=== PATIENT | male | born 1990 | race Caucasian/White ===

== ENCOUNTER 2016-09-14 19:22 | Emergency (ER) | payer BC, OTHER ==
[2016-09-14 19:48] VITALS: BP 121/59; PULSE 76; RESP 18; TEMP 98.7
--- NOTE | 2016-09-14 20:44 | XR ---
EXAMINATION TYPE: XR knee complete RT DATE OF EXAM: 09/14/2016 8:40 PM CLINICAL HISTORY: Right knee pain since popping injury today. TECHNIQUE: Three views of the right knee are obtained. COMPARISON: Right knee x-ray January 04, 2016. FINDINGS: There is no acute fracture/dislocation evident in right knee. The tri-compartment joint s paces appear within normal limits. There is persistent partial ossific projection from anterior infer ior patella could reflect spur or osteochondroma. Increased density suprapatellar bursa suspicious fo r joint effusion. IMPRESSION: There is no acute fracture or dislocation in the right knee. No significant change from prior.
--- NOTE | 2016-09-14 20:52 | ED ---
Lower Extremity Injury HPI - General Chief Complaint: Extremity Injury, Lower Stated Complaint: knee injury Time Seen by Provider: 09/14/16 19:58 Source: patient, RN notes reviewed, old records reviewed Mode of arrival: ambulatory Limitations: no limitations - History of Present Illness Initial Comments: Patient is a 26-year-old female with a chief complaint of right knee pain. Patient reports that months ago he had a injury on his knee where popped out of place. Patient states that it got better afterwards after he had a steroid injection from orthopedic physician. Patient reports that over the past 2 days he felt that his knee gave out and the pain is continue to persist. Patient states that he is able to flex and extend his knee. He does note some mild swelling over. Patient reports the pain is mainly over the accident inner part of the knee. Patient states it is able to bear weight. Denies any hip or ankle pain. - Related Data Previous Rx's Medication Instructions Recorded Naproxen 500 mg PO Q12HR #20 tab 09/14/16 Allergies Allergy/AdvReac Type Severity Reaction Status Date / Time No Known Allergies Allergy Verified 09/14/16 19:48 Review of Systems ROS Statement: Those systems with pertinent positive or pertinent negative responses have been documented in the HPI. ROS Other: All systems not noted in ROS Statement are negative. Past Medical History Past Medical History: No Reported History History of Any Multi-Drug Resistant Organisms: None Reported Past Surgical History: Orthopedic Surgery Additional Past Surgical History / Comment(s): RIGHT HAND Past Psychological History: No Psychological Hx Reported Smoking Status: Current every day smoker Past Alcohol Use History: Occasional Past Drug Use History: None Reported General Exam - General Exam Comments Initial Comments: Pleasant 26-year-old male. No distress. Limitations: no limitations General appearance: alert, in no apparent distress Head exam: Present: atraumatic, normocephalic, normal inspection Eye exam: Present: normal appearance, PERRL, EOMI. Absent: scleral icterus, conjunctival injection, periorbital swelling ENT exam: Present: normal exam, mucous membranes moist Neck exam: Present: normal inspection. Absent: tenderness, meningismus, lymphadenopathy Respiratory exam: Present: normal lung sounds bilaterally. Absent: respiratory distress, wheezes, rales, rhonchi, stridor Cardiovascular Exam: Present: regular rate, normal rhythm, normal heart sounds. Absent: systolic murmur, diastolic murmur, rubs, gallop, clicks GI/Abdominal exam: Present: soft, normal bowel sounds. Absent: distended, tenderness, guarding, rebound, rigid Extremities exam: Present: normal inspection, full ROM, normal capillary refill. Absent: tenderness, pedal edema, joint swelling, calf tenderness Back exam: Present: normal inspection Neurological exam: Present: alert, oriented X3, CN II-XII intact Psychiatric exam: Present: normal affect, normal mood Skin exam: Present: warm, dry, intact, normal color. Absent: rash Course Vital Signs 09/14/16 19:45 Temperature 98.7 F Pulse Rate 76 Respiratory 18 Rate Blood Pressure 121/59 O2 Sat by Pulse 99 Oximetry Medical Decision Making - Medical Decision Making Patient is a 26-year-old female with a chief complaint of right knee pain. Patient reports that months ago he had a injury on his knee where popped out of place. Patient states that it got better afterwards after he had a steroid injection from orthopedic physician. Patient reports that over the past 2 days he felt that his knee gave out and the pain is continue to persist. Patient states that he is able to flex and extend his knee. He does note some mild swelling over. Patient xray is negative for acute process. Patient has mild laxity with posterior movement. Patient has knee imbilizer at home, discussed follow up with orthopedic physician. Patient understands treatent plan and will comply. Given kayce wrap. - Radiology Data Radiology results: report reviewed Xray is negative for any acute process. Disposition Clinical Impression: Joint laxity of right knee Disposition: HOME SELF-CARE Condition: Good Instructions: Knee Sprain (ED) Additional Instructions: Visualize follow-up with Dr. Fabian within the next 1-2 days. He is at home knee immobilizer previous prescriptions of crutches to ambulate. Patient needs to follow-up with orthopedic physician to get an MRI. Taken Motrin or Tylenol for pain and keep the knee elevated, apply ice over the area. Prescriptions: Naproxen 500 mg PO Q12HR #20 tab Referrals: Dawood Erwin MD [Primary Care Provider] - 1-2 days Dat Fabian MD [STAFF PHYSICIAN] - 1-2 days Time of Disposition: 20:46
== END 2016-09-14 20:55 | disposition home or self-care (01) ==
LOC: EC 19:22
DX: M25.261 Flail joint, right knee (principal); F17.200 Nicotine dependence, unspecified, uncomplicated
CPT/HCPCS: 99284

== ENCOUNTER 2017-09-06 14:03 | Emergency (ER) | payer BC, OTHER ==
[2017-09-06 14:19] VITALS: BP 124/58; PULSE 76; RESP 18; TEMP 98.1
--- NOTE | 2017-09-06 15:06 | XR ---
EXAMINATION TYPE: XR hand complete LT DATE OF EXAM: 09/06/2017 COMPARISON: NONE HISTORY: 27-year-old male injury and laceration to left middle finger on sheet metal, pain TECHNIQUE: 3 views FINDINGS: No acute fracture, subluxation, or dislocation. Joint spaces throughout are maintained. No periostiti s or osteolysis. Old healed angulated boxer's fracture at the fifth metacarpal neck. No retained radi opaque foreign body seen. IMPRESSION: 1. No acute osseous abnormality seen. No retained radiopaque foreign body material. 2. Old healed angulated boxer's fracture fifth metacarpal neck.
--- NOTE | 2017-09-06 15:08 | ED ---
Wound/Laceration HPI - General Chief Complaint: Wound/Laceration Stated Complaint: Finger Injuy Time Seen by Provider: 09/06/17 14:21 Source: patient, RN notes reviewed, old records reviewed Mode of arrival: ambulatory Limitations: no limitations - History of Present Illness Initial Comments: This patient is a 27 year old male with CC of left middle finger laceration. Patient reports that he cut it on sheet metal at work. He reports full ROM of finger. Denies numbness or tingling. Patient relates that he is up to date on tetanus, he had it 4 years ago. Denies any other lacerations or injury. - Related Data Previous Rx's Medication Instructions Recorded Naproxen 500 mg PO Q12HR #20 tab 09/14/16 Allergies Allergy/AdvReac Type Severity Reaction Status Date / Time No Known Allergies Allergy Verified 09/06/17 14:19 Review of Systems ROS Statement: Those systems with pertinent positive or pertinent negative responses have been documented in the HPI. ROS Other: All systems not noted in ROS Statement are negative. Past Medical History Past Medical History: No Reported History History of Any Multi-Drug Resistant Organisms: None Reported Past Surgical History: Orthopedic Surgery Additional Past Surgical History / Comment(s): RIGHT HAND Past Psychological History: No Psychological Hx Reported Smoking Status: Current every day smoker Past Alcohol Use History: Occasional Past Drug Use History: Marijuana General Exam - General Exam Comments Initial Comments: This is a 27 year old male, no distress. Limitations: no limitations General appearance: alert, in no apparent distress Head exam: Present: atraumatic, normocephalic, normal inspection Eye exam: Present: normal appearance, PERRL, EOMI. Absent: scleral icterus, conjunctival injection, periorbital swelling ENT exam: Present: normal exam, mucous membranes moist Neck exam: Present: normal inspection. Absent: tenderness, meningismus, lymphadenopathy Respiratory exam: Present: normal lung sounds bilaterally. Absent: respiratory distress, wheezes, rales, rhonchi, stridor Cardiovascular Exam: Present: regular rate, normal rhythm, normal heart sounds. Absent: systolic murmur, diastolic murmur, rubs, gallop, clicks Left Forearm Wrist exam: Present: normal inspection, full ROM Hand Wrist exam: Present: full ROM, laceration. Absent: normal inspection, tenderness, swelling, abrasion Hand L/R Back: 1 - 2 cm laceration. Linear. Back exam: Present: normal inspection Course Vital Signs 09/06/17 14:17 Temperature 98.1 F Pulse Rate 76 Respiratory 18 Rate Blood Pressure 124/58 O2 Sat by Pulse 99 Oximetry Procedures - Laceration Laceration #1 Indication: laceration Site: hand (left 3rd proximal digit. ) Size (cm): 2 Description: linear Depth: simple, single layer Anesthetic Used: lidocaine 1% Anesthesia Technique: local infiltration Amount (mls): 3 Pre-repair: wound explored, irrigated extensively Type of Sutures: nylon Size of Sutures: 6-0 Number of Sutures: 3 Technique: simple, interrupted Patient Tolerated Procedure: well, no complications Medical Decision Making - Medical Decision Making This patient is a 27 year old male with CC of left middle finger laceration. Patient reports that he cut it on sheet metal at work. He reports full ROM of finger. Denies numbness or tingling. Patient relates that he is up to date on tetanus, he had it 4 years ago. Patient has a 2 cm laceration, it is linear and clean. No tendon involvement. Patient xray shows no foreign body, healed angulated boxer fracture noted. Patient wound was irrigated and well approximated with 3 sutures. Discussed monitor for infection, and suture care. All questions answered and return parameters discussed. - Radiology Data Radiology results: report reviewed No acute osseous abnormality seen. No retained radiopaque foreign body material. Old healed angulated boxer fracture fifth metacarpal neck. Read by Dr. Miguel. Disposition Clinical Impression: Finger laceration Disposition: HOME SELF-CARE Condition: Good Instructions: Finger Laceration (ED) Additional Instructions: Please return to the emergency room in 7 days to have sutures removed. Please leave wound covered for the first 24-48 hours and then leave open to air after that time. Please use clean soap and water to clean the suture area to prevent scabbing over the top of your sutures. Please watch for any signs of infection which may include but not limited to increased pain, swelling, redness, fever or chills. Please return to the emergency room if any signs of infection do occur. Please return to the emergency room for any other concerns or complications. Referrals: Dawood Erwin MD [Primary Care Provider] - 1-2 days Time of Disposition: 15:07
== END 2017-09-06 15:28 | disposition home or self-care (01) ==
LOC: EC 14:03
DX: S61.213A Laceration without foreign body of left middle finger without damage to nail, initial encounter (principal); F17.200 Nicotine dependence, unspecified, uncomplicated; W26.8XXA Contact with other sharp object(s), not elsewhere classified, initial encounter; Y99.0 Civilian activity done for income or pay; Y92.69 Other specified industrial and construction area as the place of occurrence of the external cause
CPT/HCPCS: 12001; 99283

== ENCOUNTER 2018-05-17 11:55 | Emergency (ER) | payer OTHER ==
[2018-05-17 12:06] VITALS: RESP 18
[2018-05-17] MEDS ORDERED: KETOROLAC 60 MG/2 ML VIAL IM STA (12:25)
--- NOTE | 2018-05-17 12:30 | ED ---
General Adult HPI - General Chief complaint: Chest Pain Stated complaint: Chest pain Time Seen by Provider: 05/17/18 12:00 Source: patient, RN notes reviewed Mode of arrival: ambulatory Limitations: no limitations - History of Present Illness Initial comments: This is a 27-year-old male who presents emergency Department complaining of right-sided mid pectoralis chest pain. Patient states it started on Wednesday. Patient states it's reproducible with palpation. Patient states it's reproducible with movement of his arm above horizontal. Patient states he refers lungs is lifting things that are below his waist does not hurt. But if he starts lifting above his head the pain is there. Patient states takes Motrin and it does help the pain. Patient denies any direct trauma to the area that he knows of. Patient denies any shortness of breath or difficulty breathing. Patient denies any sweating episodes. Patient denies any nausea vomiting. Patient denies any radiation of the pain. Patient denies abdominal pain patient denies nausea vomiting diarrhea. Patient denies headache patient denies numbness weakness.patient states she recently got over bronchitis. - Related Data Previous Rx's Medication Instructions Recorded Naproxen 500 mg PO Q12HR #20 tab 09/14/16 Ibuprofen [Motrin] 600 mg PO Q6HR PRN #20 tab 05/17/18 Allergies Allergy/AdvReac Type Severity Reaction Status Date / Time No Known Allergies Allergy Verified 09/06/17 14:19 Review of Systems ROS Statement: Those systems with pertinent positive or pertinent negative responses have been documented in the HPI. ROS Other: All systems not noted in ROS Statement are negative. Past Medical History Past Medical History: No Reported History History of Any Multi-Drug Resistant Organisms: None Reported Past Surgical History: Orthopedic Surgery Additional Past Surgical History / Comment(s): RIGHT HAND Past Psychological History: No Psychological Hx Reported Smoking Status: Current every day smoker Past Alcohol Use History: Occasional Past Drug Use History: Marijuana General Exam - General Exam Comments Initial Comments: GENERAL: Patient is well-developed and well-nourished. Patient is nontoxic and well- hydrated and is in mild distress. ENT: Neck is soft and supple. No significant lymphadenopathy is noted. Oropharynx is clear. Moist mucous membranes. Neck has full range of motion without eliciting any pain. EYES: The sclera were anicteric and conjunctiva were pink and moist. Extraocular movements were intact and pupils were equal round and reactive to light. Eyelids were unremarkable. PULMONARY: Unlabored respirations. Good breath sounds bilaterally. No audible rales rhonchi or wheezing was noted. CARDIOVASCULAR: There is a regular rate and rhythm without any murmurs gallops or rubs. Chest pain is reproducible in the mid right pectoralis muscle patient also can reproduce the pain when he raises his right hand above horizontal ABDOMEN: Soft and nontender with normal bowel sounds. SKIN: Skin is clear with no lesions or rashes and otherwise unremarkable. NEUROLOGIC: Patient is alert and oriented x3. Cranial nerves II through XII are grossly intact. Motor and sensory are also intact. Normal speech, volume and content. Symmetrical smile. MUSCULOSKELETAL: Normal extremities with adequate strength and full range of motion. LYMPHATICS: No significant lymphadenopathy is noted PSYCHIATRIC: Normal psychiatric evaluation. Limitations: no limitations Course Vital Signs 05/17/18 05/17/18 12:03 12:43 Temperature 98.2 F Pulse Rate 73 Respiratory 18 18 Rate Blood Pressure 120/73 O2 Sat by Pulse 98 Oximetry Medical Decision Making - Medical Decision Making EKG shows sinus bradycardia 55 bpm AZ interval 128 QRSs 104 Q-T intervals 46 QTC is 388. Patient's EKG shows no ST segment elevation or depression or T wave abnormalities are noted. Chest x-ray shows no acute abnormality. Toradol helped the patient's chest pain. Disposition Clinical Impression: Chest wall pain Disposition: HOME SELF-CARE Condition: Good Instructions: Chest Wall Pain (ED) Prescriptions: Ibuprofen [Motrin] 600 mg PO Q6HR PRN #20 tab PRN Reason: For pain Is patient prescribed a controlled substance at d/c from ED?: No Referrals: Dawood Erwin MD [Primary Care Provider] - 1-2 days Time of Disposition: 13:18
--- NOTE | 2018-05-17 13:11 | XR ---
EXAMINATION TYPE: XR chest 2V DATE OF EXAM: 05/17/2018 COMPARISON: Prior chest x-ray 03/16/2016 HISTORY: Difficulty breathing, chest pain TECHNIQUE: Frontal and lateral views of the chest are obtained on 3 images. FINDINGS: There is no focal air space opacity, pleural effusion, or pneumothorax seen. The cardiac silhouette size is within normal limits. The osseous structures are intact. There are prominent isa g volumes which can be seen with COPD. There is a mild spinal curvature. IMPRESSION: No acute cardiopulmonary process.
[2018-05-17 13:45] VITALS: BP 122/80; PULSE 65; TEMP 98
== END 2018-05-17 13:41 | disposition home or self-care (01) ==
LOC: EC 11:55
DX: R07.89 Other chest pain (principal); R00.1 Bradycardia, unspecified; F17.200 Nicotine dependence, unspecified, uncomplicated
CPT/HCPCS: 93005; 71046; 99285; 96372; J1885

== ENCOUNTER 2019-11-08 21:23 | Emergency (ER) | payer OTHER ==
--- NOTE | 2019-11-08 21:46 | ED ---
Psych HPI - General Source: patient Mode of arrival: ambulatory <Mesha Yepez - Last Filed: 11/08/19 21:45> <Yordan Chadwick - Last Filed: 11/09/19 08:50> - General Chief Complaint: Psychiatric Symptoms Stated Complaint: Mental Health Time Seen by Provider: 11/08/19 21:38 - History of Present Illness Initial Comments: Patient is a 29-year-old male presenting to the emergency department for a psychiatric evaluation. Patient's mother is accompanying patient. Patient states he is having suicidal thoughts, no homicidal thoughts. He states he does not have a plan at this time. He states he's been feeling this way for some time now. He states he is an everyday drinker and has been drinking a lot today. He admits to smoking marijuana, no other drug use. Patient denies any recent fever, chills, chest pain, shortness of breath. He has no further complaints at this time. (Mesha Yepez) - Related Data Home Medications Medication Instructions Recorded Confirmed No Known Home Medications 11/09/19 11/09/19 Allergies Allergy/AdvReac Type Severity Reaction Status Date / Time No Known Allergies Allergy Verified 11/08/19 21:37 Review of Systems ROS Other: All systems not noted in ROS Statement are negative. <Mesha Yepez - Last Filed: 11/08/19 21:45> ROS Other: All systems not noted in ROS Statement are negative. <Yordan Chadwick - Last Filed: 11/09/19 08:50> ROS Statement: Those systems with pertinent positive or pertinent negative responses have been documented in the HPI. Past Medical History Past Medical History: No Reported History History of Any Multi-Drug Resistant Organisms: None Reported Past Surgical History: Orthopedic Surgery Additional Past Surgical History / Comment(s): RIGHT HAND Past Psychological History: Anxiety, Bipolar, Depression Smoking Status: Current every day smoker Past Alcohol Use History: Daily Past Drug Use History: Marijuana <Mesha Yepez - Last Filed: 11/08/19 21:45> General Exam Limitations: no limitations <Mesha Yepez - Last Filed: 11/08/19 21:45> - General Exam Comments Initial Comments: GENERAL: Well-appearing, well-nourished and in no acute distress. HEAD: Atraumatic, normocephalic. EYES: Pupils equal round and reactive to light, extraocular movements intact, sclera anicteric, conjunctiva are normal. ENT: TMs normal, nares patent, oropharynx clear without exudates. Moist mucous membranes. NECK: Normal range of motion, supple without lymphadenopathy or JVD. LUNGS: Breath sounds clear to auscultation bilaterally and equal. No wheezes rales or rhonchi. HEART: Regular rate and rhythm without murmurs, rubs or gallops. ABDOMEN: Soft, nontender, normoactive bowel sounds. No guarding, no rebound. No masses appreciated. : Deferred EXTREMITIES: Normal range of motion, no pitting or edema. No clubbing or cyanosis. NEUROLOGICAL: Normal speech, normal gait. PSYCH: Normal mood, normal affect. SKIN: Warm, Dry, normal turgor, no rashes or lesions noted. (Mesha Yepez) Course Vital Signs 11/08/19 11/09/19 11/09/19 21:32 04:00 06:55 Temperature 98.0 F 98.9 F Pulse Rate 111 H 109 H 73 Respiratory 18 18 16 Rate Blood Pressure 165/100 162/98 116/70 O2 Sat by Pulse 99 97 97 Oximetry Medical Decision Making - Lab Data Lab Results 11/08/19 Range/Units 22:50 Urine Opiates Screen Not Detected (NotDetected) Ur Oxycodone Screen Not Detected (NotDetected) Urine Methadone Screen Not Detected (NotDetected) Ur Propoxyphene Screen Not Detected (NotDetected) Ur Barbiturates Screen Not Detected (NotDetected) U Tricyclic Antidepress Not Detected (NotDetected) Ur Phencyclidine Scrn Not Detected (NotDetected) Ur Amphetamines Screen Not Detected (NotDetected) U Methamphetamines Scrn Not Detected (NotDetected) U Benzodiazepines Scrn Not Detected (NotDetected) Urine Cocaine Screen Not Detected (NotDetected) U Marijuana (THC) Screen Detected H (NotDetected) Disposition <Mesha Yepez - Last Filed: 11/08/19 21:45> Is patient prescribed a controlled substance at d/c from ED?: No Time of Disposition: 08:50 <Yordan Chadwick - Last Filed: 11/09/19 08:50> Clinical Impression: Alcohol intoxication, Situational depression Disposition: HOME SELF-CARE Condition: Good Instructions (If sedation given, give patient instructions): Depression (ED), Alcohol Intoxication (ED) Referrals: None,Stated [Primary Care Provider] - 1-2 days
[2019-11-08 23:21] LABS: Amphetamine Screen,Urine Not Detected (NotDetected); Barbiturate Screen,Urine Not Detected (NotDetected); Benzodiazepines Screen,Urine Not Detected (NotDetected); Cocaine Screen,Urine Not Detected (NotDetected); Methadone Screen, Urine Not Detected (NotDetected); Opiate Screen,Urine Not Detected (NotDetected); Oxycodone Screen, Urine Not Detected (NotDetected); Phencyclidine Screen,Urine Not Detected (NotDetected); Tricyclic Antidepressant,Urine Not Detected (NotDetected); Urn Cannabinoid Scrn Detected (NotDetected)
[2019-11-09] MEDS ORDERED: ACETAMINOPHEN TAB 325 MG TAB PO STA (04:29)
[2019-11-09] MEDS ORDERED: ONDANSETRON 4 MG/2 ML VIAL IVP STA (04:29)
[2019-11-09 06:56] VITALS: RESP 16; TEMP 98.9
[2019-11-09 09:16] VITALS: BP 159/87; PULSE 82
== END 2019-11-09 09:05 | disposition home or self-care (01) ==
LOC: EC 21:23
DX: F43.21 Adjustment disorder with depressed mood (principal); F10.129 Alcohol abuse with intoxication, unspecified; F17.200 Nicotine dependence, unspecified, uncomplicated
CPT/HCPCS: 82075; 80306; 99285; 96374; J2405

== ENCOUNTER 2024-08-11 16:35 | Emergency (ER) | payer BC, OTHER ==
--- NOTE | 2024-08-11 16:57 | ED ---
General Adult HPI - General Chief complaint: Overdose Stated complaint: overdose,fall Time Seen by Provider: 08/11/24 16:41 Source: EMS Mode of arrival: EMS Limitations: no limitations - History of Present Illness Initial comments: Dictation was produced using [employer] dictation software. please excuse any grammatical, word or spelling errors. Chief Complaint: 34-year-old male with left eyelid laceration altered mental status after overdose on kratom History of Present Illness: Patient 34-year-old male who presents to the emergency department after overdose on kratom. Patient states that yesterday he was in [facility] where he was high and or drunk he fell and lacerated his left eyelid. Patient states he also hurt his left shoulder. Patient decided to drive back here. States that he was tired and wanted to sleep before he sought some medical attention for his left shoulder his left eyelid. Patient is brought in by EMS after he was found to be altered by family. Patient reports overdosing on a kratom supplement The ROS documented in this emergency department record has been reviewed and confirmed by me. Those systems with pertinent positive or negative responses have been documented in the HPI. All other systems are other negative and/or noncontributory. - Related Data Home Medications Medication Instructions Recorded Confirmed No Known Home Medications 11/09/19 08/11/24 Allergies Allergy/AdvReac Type Severity Reaction Status Date / Time No Known Allergies Allergy Verified 08/11/24 18:16 Review of Systems ROS Statement: Those systems with pertinent positive or pertinent negative responses have been documented in the HPI. ROS Other: All systems not noted in ROS Statement are negative. Past Medical History Past Medical History: No Reported History History of Any Multi-Drug Resistant Organisms: None Reported Past Surgical History: Orthopedic Surgery Additional Past Surgical History / Comment(s): RIGHT HAND Past Psychological History: Anxiety, Bipolar, Depression Smoking Status: Vaper Past Alcohol Use History: Daily Past Drug Use History: Marijuana General Exam - General Exam Comments Initial Comments: PHYSICAL EXAM: General Impression: Alert and oriented x3, not in acute distress HEENT: Normocephalic atraumatic, left upper eyelid laceration measuring approximately 1 cm, laceration spares tarsal plate, extra-ocular movements intact, pupils equal and reactive to light bilaterally, mucous membranes moist. Cardiovascular: Heart regular rate and rhythm Chest: Able to complete full sentences, no retractions, no tachypnea Abdomen: abdomen soft, non-tender, non-distended, no organomegaly Musculoskeletal: Pulses present and equal in all extremities, no peripheral edema Motor: no focal deficits noted Neurological: CN II-XII grossly intact, no focal motor or sensory deficits noted Skin: Intact with no visualized rashes Psych: Normal affect and mood Left shoulder: Bruising and palpatory tenderness to the left shoulder Limitations: no limitations Course Vital Signs 08/11/24 08/11/24 08/11/24 16:36 17:31 18:09 Temperature 98.1 F Pulse Rate 80 80 71 Respiratory 18 18 14 Rate Blood Pressure 169/111 156/101 142/98 O2 Sat by Pulse 97 96 100 Oximetry EKG Findings - EKG Comments: EKG Findings:: My EKG interpretation: Ventricular rate 73, sinus rhythm, AR 164, QRS 111, QTc 416. No AR prolongation, no QTC prolongation, no ST or T-wave changes noted. Overall, this EKG is unremarkable Procedures - Laceration Laceration #1 Consent Obtained: verbal consent, emergent situation Indication: laceration Site: other (left upper eyelid) Size (cm): 1 Description: linear Depth: simple, single layer Anesthetic Used: lidocaine 1%, with epi Amount (mls): 1 Pre-repair: irrigated extensively, deep structures intact Type of Sutures: nylon Size of Sutures: 6-0 Number of Sutures: 3 Technique: simple, interrupted Patient Tolerated Procedure: well Medical Decision Making - Medical Decision Making Was pt. sent in by a medical professional or institution ([facility], AESTHETICIAN, urgent care, hospital, or long term...) When possible be specific @ -No Did you speak to anyone other than the patient for history (EMS, parent, family, police, friend...)? What history was obtained from this source @ -No Did you review nursing and triage notes (agree or disagree)? Why? @ -I reviewed and agree with nursing and triage notes Were old charts reviewed (outside hosp., previous admission, EMS record, old EKG, old radiological studies, urgent care reports/EKG's, long term records)? Report findings @ -No old charts were reviewed Differential Diagnosis (chest pain, altered mental status, abdominal pain women, abdominal pain men, vaginal bleeding, musculoskeletal, weakness, fever, dyspnea, syncope, headache, dizziness, GI bleed, back pain, seizure, CVA, palpatations, mental health)? @ -Differential Altered Mental Status: Hypoglycemia, DKA, hypercapnia, ETOH, overdose, CO poisoning, trauma, myxedema coma, HTN encephalopathy, infection, encephalitis, psychosis, intercranial hemorrhage, hepatic encephalopathy, meningitis, CVA, this is not meant to be an all-inclusive list EKG interpreted by me (3pts min.). @ -See above X-rays interpreted by me (1pt min.). @ -Shoulder x-ray shows distal clavicle fracture CT interpreted by me (1pt min.). @ -CT face shows no acute processes. CT brain shows no acute processes U/S interpreted by me (1pt. min.). @ -None done What testing was considered but not performed or refused? (CT, X-rays, U/S, la bs)? Why? @ -None What meds were considered but not given or refused? Why? @ -None Was smoking cessation discussed for >3mins.? @ -No Were there social determinants of health that impacted care today? How? (Homelessness, low income, unemployed, alcoholism, drug addiction, transportation, low edu. Level, literacy, decrease access to med. care, m[facility], rehab)? @ -No Was there de-escalation of care discussed even if they declined (Discuss DNR or withdrawal of care, Hospice)? DNR status @ -No What co-morbidities impacted this encounter? (DM, HTN, Smoking, COPD, CAD, Cancer, CVA, ARF, Chemo, Hep., AIDS, mental health diagnosis, sleep apnea, morbid obesity)? @ -None Was patient admitted / discharged? Hospital course, mention meds given and route, prescriptions, significant lab abnormalities, going to OR and other pertinent info. @ -34-year-old male with left eyelid laceration left shoulder pain. Vital signs stable. Patient well-appearing at the bedside in no acute distress. Shoulder x-ray shows distal clavicle fracture. Patient has simple left upper eyelid laceration just a single layer. Tetanus updated. Left eyelid laceration was repaired using orbital nerve block. Patient tolerated procedure well. Patient has left clavicle fracture placed in a left arm sling. Reevaluated bedside at 8:30 PM found to be send medical edition. Poison control's contact did not have any significant recommendations. Labs are otherwise unremarkable. Patient discharged with Optho follow-up for eyelid laceration and Ortho follow- up for distal left clavicle fracture. Did you discuss the management of the patient with other professionals (professionals i.e. , PA, AESTHETICIAN, lab, RT, psych nurse, marriage and family social worker, product planner, teacher, police liaison officer, embedded case manager)? Give summary @ -See above Was critical care preformed (if so, how long)? @ -No Undiagnosed new problem with uncertain prognosis? @ -No Drug Therapy requiring intensive monitoring for toxicity (Heparin, Nitro, Insulin, Cardizem)? @ -No Were any procedures done? @ -See above Diagnosis/symptom? Acute, or Chronic, or Acute on Chronic? Uncomplicated (without systemic symptoms) or Complicated (systemic symptoms)? @ -Eyelid laceration clavicle fracture Side effects of treatment? @ -No Exacerbation, Progression, or Severe Exacerbation? @ -No Poses a threat to life or bodily function? How? (Chest pain, USA, PA, pneumonia, PE, COPD, DKA, ARF, appy, cholecystitis, CVA, Diverticulitis, Homicidal, Suicidal, threat to staff... and all critical care pts) @ -yes - Lab Data Result diagrams: 08/11/24 16:55 08/11/24 16:55 Lab Results 08/11/24 08/11/24 08/11/24 Range/Units 16:55 16:55 16:55 WBC 10.1 (3.8-10.6) k/uL RBC 4.27 L (4.30-5.90) m/uL Hgb 13.0 (13.0-17.5) gm/dL Hct 41.0 (39.0-53.0) % MCV 96.0 (80.0-100.0) fL MCH 30.4 (25.0-35.0) pg MCHC 31.6 (31.0-37.0) g/dL RDW 12.6 (11.5-15.5) % Plt Count 215 (150-450) k/uL MPV 7.6 Neutrophils % 83 % Lymphocytes % 11 % Monocytes % 5 % Eosinophils % 1 % Basophils % 0 % Neutrophils # 8.4 H (1.3-7.7) k/uL Lymphocytes # 1.1 (1.0-4.8) k/uL Monocytes # 0.5 (0-1.0) k/uL Eosinophils # 0.1 (0-0.7) k/uL Basophils # 0.0 (0-0.2) k/uL Sodium 131 L (137-145) mmol/L Potassium 4.2 (3.5-5.1) mmol/L Chloride 93 L (98-107) mmol/L Carbon Dioxide 28 (22-30) mmol/L Anion Gap 10 mmol/L BUN 8 L (9-20) mg/dL Creatinine 0.65 L (0.66-1.25) mg/dL Est GFR (CKD-EPI)AfAm >90 (>60 ml/min/1.73 sqM) Est GFR (CKD-EPI)NonAf >90 (>60 ml/min/1.73 sqM) Glucose 126 H (74-99) mg/dL Plasma Lactic Acid David 1.8 (0.7-2.0) mmol/L Calcium 8.9 (8.4-10.2) mg/dL Magnesium 1.7 (1.6-2.3) mg/dL Total Bilirubin 0.8 (0.2-1.3) mg/dL AST 35 (17-59) U/L ALT 21 (4-49) U/L Alkaline Phosphatase 115 (38-126) U/L Total Protein 6.9 (6.3-8.2) g/dL Albumin 4.5 (3.5-5.0) g/dL Salicylates <1.0 mg/dL Urine Opiates Screen (NotDetected) Ur Oxycodone Screen (NotDetected) Urine Methadone Screen (NotDetected) Acetaminophen <10.0 ug/mL Ur Barbiturates Screen (NotDetected) U Tricyclic Antidepress (NotDetected) Ur Phencyclidine Scrn (NotDetected) Ur Amphetamines Screen (NotDetected) U Methamphetamines Scrn (NotDetected) U Benzodiazepines Scrn (NotDetected) Urine Cocaine Screen (NotDetected) U Marijuana (THC) Screen (NotDetected) Serum Alcohol <10 mg/dL 08/11/24 Range/Units 18:28 WBC (3.8-10.6) k/uL RBC (4.30-5.90) m/uL Hgb (13.0-17.5) gm/dL Hct (39.0-53.0) % MCV (80.0-100.0) fL MCH (25.0-35.0) pg MCHC (31.0-37.0) g/dL RDW (11.5-15.5) % Plt Count (150-450) k/uL MPV Neutrophils % % Lymphocytes % % Monocytes % % Eosinophils % % Basophils % % Neutrophils # (1.3-7.7) k/uL Lymphocytes # (1.0-4.8) k/uL Monocytes # (0-1.0) k/uL Eosinophils # (0-0.7) k/uL Basophils # (0-0.2) k/uL Sodium (137-145) mmol/L Potassium (3.5-5.1) mmol/L Chloride (98-107) mmol/L Carbon Dioxide (22-30) mmol/L Anion Gap mmol/L BUN (9-20) mg/dL Creatinine (0.66-1.25) mg/dL Est GFR (CKD-EPI)AfAm (>60 ml/min/1.73 sqM) Est GFR (CKD-EPI)NonAf (>60 ml/min/1.73 sqM) Glucose (74-99) mg/dL Plasma Lactic Acid David (0.7-2.0) mmol/L Calcium (8.4-10.2) mg/dL Magnesium (1.6-2.3) mg/dL Total Bilirubin (0.2-1.3) mg/dL AST (17-59) U/L ALT (4-49) U/L Alkaline Phosphatase (38-126) U/L Total Protein (6.3-8.2) g/dL Albumin (3.5-5.0) g/dL Salicylates mg/dL Urine Opiates Screen Not Detected (NotDetected) Ur Oxycodone Screen Not Detected (NotDetected) Urine Methadone Screen Not Detected (NotDetected) Acetaminophen ug/mL Ur Barbiturates Screen Not Detected (NotDetected) U Tricyclic Antidepress Not Detected (NotDetected) Ur Phencyclidine Scrn Not Detected (NotDetected) Ur Amphetamines Screen Not Detected (NotDetected) U Methamphetamines Scrn Not Detected (NotDetected) U Benzodiazepines Scrn Not Detected (NotDetected) Urine Cocaine Screen Not Detected (NotDetected) U Marijuana (THC) Screen Not Detected (NotDetected) Serum Alcohol mg/dL Disposition Clinical Impression: Laceration of eyelid without involvement of lid margin, Clavicle fracture Disposition: HOME SELF-CARE Condition: Fair Instructions (If sedation given, give patient instructions): Adult Overdose (ED), Laceration (ED), Clavicle Fracture (ED) Additional Instructions: follow up with opthamology for eye lid suture removal and wound follow up in 3 days, follow up with orthopedic surgery for clavicle fracture Is patient prescribed a controlled substance at d/c from ED?: No Referrals: Neal Starks MD [STAFF PHYSICIAN] - 1-2 days Bishop Davenport DO [Doctor of Osteopathic Medicine] - 1-2 days Time of Disposition: 20:27
[2024-08-11 17:19] LABS: Basophils % (A) 0 %; Eosinophils # (A) 0.1 k/uL (0-0.7); Eosinophils % (A) 1 %; Lymphocytes # (A) 1.1 k/uL (1.0-4.8); Lymphocytes % (A) 11 %; MCH 30.4 pg (25.0-35.0); MCHC 31.6 g/dL (31.0-37.0); Mean Platelet Volume 7.6; Monocytes # (A) 0.5 k/uL (0-1.0); Monocytes % (A) 5 %; Neutrophils # (A) 8.4 k/uL (1.3-7.7); Neutrophils % (A) 83 %; Platelet Count 215 k/uL (150-450); RBC 4.27 m/uL (4.30-5.90); RDW 12.6 % (11.5-15.5); WBC 10.1 k/uL (3.8-10.6)
--- NOTE | 2024-08-11 17:19 | XR ---
EXAMINATION TYPE: XR shoulder complete LT DATE OF EXAM: 08/11/2024 5:12 PM COMPARISON: None. CLINICAL INDICATION: Male, 34 years old with history of fall, pain TECHNIQUE: XR shoulder complete LT views were obtained FINDINGS: Fracture of the distal left clavicle with extension along the inferior and superior margin. There is apparent elevation of the distal clavicle relative to the acromium as well as widening of the coracoc lavicular ligament suggesting a degree of associated AC joint separation. The visualized ribs are int act and unremarkable. IMPRESSION: Distal clavicular fracture with a degree of AC joint separation suggested. [facility], , 08/11/2024 5:17 PM
[2024-08-11] MEDS: DIPH,PERTUS(ACELL)TETVAC-LF 0.5 ML VIAL IM ONE (17:27)
--- NOTE | 2024-08-11 17:27 | CT ---
EXAMINATION TYPE: CT facial bones wo con DATE OF EXAM: 08/11/2024 5:20 PM COMPARISON: None. CLINICAL INDICATION: Male, 34 years old with history of fall, Fall. Overdose., pain TECHNIQUE: Unenhanced CT of the facial bones was performed in the axial and coronal planes. Bone and soft tissue window settings are submitted. CT DLP: Combined DLP of mGycm, Automated exposure control for dose reduction was used. Contrast used: mL of , (none if empty) FINDINGS: There appears to be submental soft tissue swelling. Correlate clinically. I do not see evidence for displaced facial bone fracture or depressed facial bone fracture. The globes are intact. Paranasal sinuses are well-aerated. IMPRESSION: 1. No evidence for depressed or displaced facial bone fracture. [facility], , 08/11/2024 5:25 PM
[2024-08-11 17:32] LABS: ALT 21 U/L (4-49); AST 35 U/L (17-59); Acetaminophen <10.0 ug/mL; African American GFR (CKD) >90 (>60 ml/min/1.73 sqM); Albumin 4.5 g/dL (3.5-5.0); Alcohol <10 mg/dL; Alkaline Phosphatase 115 U/L (38-126); Anion Gap 10 mmol/L; Blood Urea Nitrogen 8 mg/dL (9-20); Calcium 8.9 mg/dL (8.4-10.2); Carbon Dioxide 28 mmol/L (22-30); Chloride 93 mmol/L (98-107); Glucose 126 mg/dL (74-99); Magnesium 1.7 mg/dL (1.6-2.3); Non-African American GFR(CKD) >90 (>60 ml/min/1.73 sqM); Potassium 4.2 mmol/L (3.5-5.1); Salicylate <1.0 mg/dL; Sodium 131 mmol/L (137-145); Total Bilirubin 0.8 mg/dL (0.2-1.3); Total Protein 6.9 g/dL (6.3-8.2)
[2024-08-11] MEDS: ONDANSETRON 4 MG/2 ML VIAL IVP STA (18:24)
[2024-08-11] MEDS: KETOROLAC 15 MG/ML 1 ML VIAL IVP STA (18:26)
[2024-08-11 18:49] LABS: Amphetamine Screen,Urine Not Detected (NotDetected); Barbiturate Screen,Urine Not Detected (NotDetected); Benzodiazepines Screen,Urine Not Detected (NotDetected); Cocaine Screen,Urine Not Detected (NotDetected); Methadone Screen, Urine Not Detected (NotDetected); Opiate Screen,Urine Not Detected (NotDetected); Oxycodone Screen, Urine Not Detected (NotDetected); Phencyclidine Screen,Urine Not Detected (NotDetected); Tricyclic Antidepressant,Urine Not Detected (NotDetected); Urn Cannabinoid Scrn Not Detected (NotDetected)
--- NOTE | 2024-08-11 20:57 | CT ---
EXAMINATION TYPE: CT brain cspine wo con DATE OF EXAM: 08/11/2024 COMPARISON: None CLINICAL INDICATION: Male, 34 years old with history of fall; PHH, Fall. Overdose. TECHNIQUE: CT scan of the head and cervical spine are performed without contrast. CT DLP: Combined DLP of mGycm CT CTDI: mGy Automated exposure control for dose reduction was used. FINDINGS: There is no acute intracranial hemorrhage, mass effect, or midline shift identified. The ventricles and sulci are within normal limits in size. The globes are intact and the visualized sinuses are xiao ar. Cervical spine is visualized in its entirety from C1 through upper thoracic levels and demonstrates s atisfactory alignment without evidence of acute fracture or dislocation. Prevertebral soft tissue ap pears within normal limits. The C1-C2 articulation is unremarkable. IMPRESSION: There is no acute fracture or dislocation evident in the cervical spine. 2. No acute intracranial hemorrhage, mass effect, or midline shift is seen. [facility], , 08/11/2024 8:55 PM
[2024-08-11 21:22] VITALS: BP 130/81; PULSE 78; RESP 18; TEMP 98.8
[2024-08-11] MEDS: LIDOCAINE 1% INJ 10MG/ML (20 ML MDV) SQ ONE (21:22)
[2024-08-11] MEDS: LIDOCAINE 2%-EPI 1:100,000 20 ML VIAL SQ STA (21:22)
== END 2024-08-11 21:30 | disposition home or self-care (01) ==
LOC: EC 16:35
DX: S42.032A Displaced fracture of lateral end of left clavicle, initial encounter for closed fracture (principal); S01.112A Laceration without foreign body of left eyelid and periocular area, initial encounter; T65.891A Toxic effect of other specified substances, accidental (unintentional), initial encounter; F17.290 Nicotine dependence, other tobacco product, uncomplicated; Z23 Encounter for immunization; W17.89XA Other fall from one level to another, initial encounter
CPT/HCPCS: 12011; 99285; 96374; 96375; 90471; 36415; 93005; 80053; 83605; 83735; 85025; 80306; 80143; 80320; 80179; 73030; 72125; 70486; 70450; 90715; J2405; J1885